=== PATIENT | male | born 1955 | race Caucasian/White ===

== ENCOUNTER 2019-10-15 13:37 | Outpatient (CLI) | payer OTHER, SELFPAY ==
--- NOTE | 2019-10-15 | CT_ITS ---
WS: [id number] LDCT LUNG CANCER SCREENING TECHNIQUE: of the chest with coronal and sagittal reformatted images. CLINICAL INFORMATION: LUNG CANCER SCREENING, SMOKER COMPARISON: None. DLP: 54.[address] scans at [facility] use at least one of these dose optimization techniques: automat ed exposure control; mA and/or kV adjustment per patient size (includes targeted exams where dose is matched to clinical indication); or iterative reconstruction. FINDINGS: Mild chronic emphysematous changes. Noncalcified 5 mm slightly irregular pulmonary nodule in the righ t upper lobe. Tiny subpleural nodules in the right upper lobe along the fissure. Largest measures 3 m m. Additional pleural-based nodule in the left lower lobe with pleural nodularity measuring 9 mm. No mediastinal or hilar lymphadenopathy. Aortic calcification. Coronary calcification. 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 OTHER FINDINGS (S MODIFIER): None. CT/CT lung screening [id number] IMPRESSION: LUNG-RADS: 4A-Probably Suspicious RECOMMEND FOLLOW-UP DIAGNOSTIC CHEST CT IN 3 MONTHS without or with contrast
--- NOTE | 2019-10-15 13:45 | CT_ITS ---
WS: [id number] LDCT LUNG CANCER SCREENING TECHNIQUE: of the chest with coronal and sagittal reformatted images. CLINICAL INFORMATION: LUNG CANCER SCREENING, SMOKER COMPARISON: None. DLP: 54.[address] scans at [facility] use at least one of these dose optimization techniques: automat ed exposure control; mA and/or kV adjustment per patient size (includes targeted exams where dose is matched to clinical indication); or iterative reconstruction. FINDINGS: Mild chronic emphysematous changes. Noncalcified 5 mm slightly irregular pulmonary nodule in the righ t upper lobe. Tiny subpleural nodules in the right upper lobe along the fissure. Largest measures 3 m m. Additional pleural-based nodule in the left lower lobe with pleural nodularity measuring 9 mm. No mediastinal or hilar lymphadenopathy. Aortic calcification. Coronary calcification. 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 OTHER FINDINGS (S MODIFIER): None.
== END 2019-10-15 13:38 | disposition home or self-care (01) ==
LOC: CT 13:38
PROVIDERS: Family Provider Family Medicine; PCP Family Medicine; Visit Provider Family Medicine
DX: Z12.2 Encounter for screening for malignant neoplasm of respiratory organs (principal); F17.200 Nicotine dependence, unspecified, uncomplicated
CPT/HCPCS: G0297